=== PATIENT | male | born 1985 | race Caucasian/White ===

== ENCOUNTER 2024-06-04 08:02 | Day surgery (SDC) | payer OTHER, SELFPAY ==
[2024-06-01 11:38] VITALS: BMI 32.5
--- NOTE | 2024-06-03 09:29 | P.CONAN_ITS ---
Documented by User: Awa Lang NP 06/03/24 09:30 HPI - Anesthesia Eval Consult details Narrative: 38yo M for [facility] Past Medical History Medical History History of restless legs syndrome Diverticulitis Surgical History Surgical History Hx of colonoscopy History of vasectomy Hx of knee surgery Social History Social History Patient Tobacco Use Status: Former Tobacco user Have you been hit, kicked, punched, or otherwise hurt by someone within the past year? If so, by whom?: No Are you DNR?: No Advance Directives: No Advance Directives Information Provided: Yes Nutrition Risks: No Nutritional Risk Meds Allergies Allergy/AdvReac Type Severity Reaction Status Date / Time No Known Allergies Allergy Verified 06/01/24 11:34 Home Medications ?Medication ?Instructions ?Recorded ?Confirmed ?Last Taken ?Type ferrous sulfate 325 mg (65 mg 325 mg PO 3XW 06/01/24 06/01/24 05/25/24 History iron) tablet (iron) mesalamine 1.2 gram tablet,delayed 2.4 g PO DAILY 06/01/24 06/01/24 05/30/24 History release Exam Height,Weight and Vital Signs: Height 5 ft 9 in Weight 99.79 kg Assessment and Plan Assessment Anesthesia Assessment: Chart Reviewed Documented by User: Lizeth Flores MD 06/04/24 09:08 [facility] Active Problems Active Problems: Denies THIAGO Vomiting x1 yesterday Occ smokes marijuana- last yesterday Past Medical History Medical History History of restless legs syndrome Diverticulitis Family History Family history of problems with anesthesia: No Surgical History Surgical History Hx of colonoscopy History of vasectomy Hx of knee surgery History of Problems with Anesthesia: No Social History Social History Patient Tobacco Use Status: Former Tobacco user Have you been hit, kicked, punched, or otherwise hurt by someone within the past year? If so, by whom?: No Are you DNR?: No Advance Directives: No Advance Directives Information Provided: Yes Nutrition Risks: No Nutritional Risk Meds Allergies Allergy/AdvReac Type Severity Reaction Status Date / Time No Known Allergies Allergy Verified 06/01/24 11:34 Home Medications ?Medication ?Instructions ?Recorded ?Confirmed ?Last Taken ?Type ferrous sulfate 325 mg (65 mg 325 mg PO 3XW 06/01/24 06/01/24 05/25/24 History iron) tablet (iron) mesalamine 1.2 gram tablet,delayed 2.4 g PO DAILY 06/01/24 06/01/24 05/30/24 History release Exam Height,Weight and Vital Signs: Height 5 ft 9 in Weight 99.79 kg Vital Signs Temp Pulse Resp BP Pulse Ox O2 Del Method 06/04/24 08:05 97.5 F 87 18 134/78 98 Room Air Airway Mallampati Class: II TM Dist: >3cm Neck ROM: Full Loose/Missing/Broken Teeth: No Heart: RRR Lungs: CTAB Assessment and Plan Assessment Anesthesia Assessment: Anesthesia Plan Discussed and Chart Reviewed Final Anesthetic Review Family History of Problems with Anesthesia: No History of Problems with Anesthesia: No NPO: Yes ASA Class: II Final Preanesthetic Review: No Changes in Pt Med Stat, Meds/Allgs Chart Reviewed, Consent Obtained/Reviewed and Anes Risks/Benef Reviewed Patient Risk: Low Procedure Risk: Low Assessment/Block/Sedation in SS: Assess/Block/Sedation-SS Anesthetic Plan Anesthetic Plan: TIVA Disposition: Standard PACU
[2024-06-04 08:05] VITALS: BP 134/78; PULSE 87; RESP 18; TEMP 36.4; O2SAT 98; BMI 32.5
[2024-06-04] MEDS: Lactated Ringers 1,000 ML 100 ML IVCONT (08:25)
--- NOTE | 2024-06-04 08:40 | P.HPSUR_ITS ---
Pre-Procedural Eval Section A - 24 Hr Update-Section A only Date of Service: 06/04/24 Section B - Complete if H&P > 30 days Chief Complaint: Noninfective gastroenteritis and colitis, unspecif Details of Present Illness: see H&P no changes Relevant Family History (Specify if Yes): No Relevant Social History: None Present Medications: see Short Stay Collaborative assessment Medical History: No relevant PMH History of Previous Operations: No relevant previous surgery Allergies: Allergies Allergy/AdvReac Type Severity Reaction Status Date / Time No Known Allergies Allergy Verified 06/01/24 11:34 Review of Systems Sugical H&P ROS: Negative: Constitution, Cardiovascular, Respiratory, Neurological, Psychiatric, Hem-Onc, Allergic/Immunologic, Gastrointestinal, Genitourinary, Musculoskeletal, Integumentary, Endocrine and Eyes/Ears/N ose/Throat Exam Surgical H&P Exam: Normal: HEENT, Normal: Heart, Normal: Lungs, Normal: Extremities, Normal: Abdomen, Normal: Skin and Normal: Neurological Plan Diagnosis/Plan: Unchanged I have reviewed the history and physical and performed a pertinent physical examination on my patient. No changes have occurred unless specified. Time Spent With Patient Time: Total time managing care of this patient today ____ minutes.
[2024-06-04 09:21] VITALS: BP 106/62; PULSE 81; RESP 14; TEMP 36.1; O2SAT 96
--- NOTE | 2024-06-04 09:22 | MHC.SHP ---
Pre-Procedural Eval Section A - 24 Hr Update-Section A only Date of Service: 06/04/24 The patient is an INPATIENT: No Changes since office visit: No Cold of Flu in the past 2 weeks, No New Medical Problems, No Changes in Medication and No Patient answered all questions The patient has been examined within 24 hours of the surgical procedure. The History & Physical has been completed within 30 days and I have reviewed it.: Yes Section B - Complete if H&P > 30 days Chief Complaint: Noninfective gastroenteritis and colitis, unspecif Allergies: Allergies Allergy/AdvReac Type Severity Reaction Status Date / Time No Known Allergies Allergy Verified 06/01/24 11:34 Plan I have reviewed the history and physical and performed a pertinent physical examination on my patient. No changes have occurred unless specified. Time Spent With Patient Time: Total time managing care of this patient today ____ minutes.
[2024-06-04 09:36] VITALS: BP 105/63; PULSE 79; RESP 16; O2SAT 94
[2024-06-04 09:51] VITALS: BP 113/83; PULSE 72; RESP 16; TEMP 36.1; O2SAT 96
--- NOTE | 2024-06-04 09:52 | OP_ITS ---
DATE OF SERVICE: 06/04/2024 SURGEON: Leonard Calderon MD INDICATIONS: History of colitis. PREOPERATIVE DIAGNOSIS: POSTOPERATIVE DIAGNOSIS: PROCEDURE PERFORMED: Colonoscopy to the terminal ileum with biopsy. ESTIMATED BLOOD LOSS: COMPLICATIONS: ANESTHESIA: Monitored anesthesia care. ASSISTANTS: SPECIMENS: DESCRIPTION OF PROCEDURE: A history and physical performed. The risks and benefits of the procedure were explained to the patient. Informed consent was obtained. The patient was placed in the left lateral decubitus position. A digital rectal exam was performed and was found to be normal. The Olympus pediatric video colonoscope was introduced into the rectum and advanced to the cecum. The cecum was identified by transillumination, palpation, and identification of ileocecal valve. Examination was performed. The scope was removed. He tolerated the procedure well and was taken to recovery in stable condition. FINDINGS: The terminal ileum was examined. This was biopsied. The visualized colonic mucosa was normal and the quality of prep was good. The colon showed mild focal patchy erythema beginning at 70 cm and extending to about 30 cm. Biopsies were obtained from throughout the colon. Retroflexed examination was normal. No polyps were identified. IMPRESSION: Colitis. RECOMMENDATION: Follow up the biopsy results. MD MARGO Figueredo/[facility] / [id number]
== END 2024-06-04 10:08 | disposition home or self-care (01) ==
PROVIDERS: PCP Internal Medicine; Visit Provider Internal Medicine Gastroenterology
PROC: 0DJD8ZZ Inspection of Lower Intestinal Tract, Via Natural or Artificial Opening Endoscopic (ICD-10-PCS; CPT 45378; principal; 2024-06-04 09:00)
DX: K52.9 Noninfective gastroenteritis and colitis, unspecified (principal); Z87.19 Personal history of other diseases of the digestive system
CPT/HCPCS: 45380; 88305; J2003; J2704